=== PATIENT | female | born 1940 | race Caucasian/White ===

== ENCOUNTER → 2023-10-23 11:15 | Outpatient (REF) | payer MEDICARE, OTHER, SELFPAY | LOC: RAD 11:15 | PROVIDERS: ATTENDING PHYSICIAN Internal Medicine Rheumatology; FAMILY PHYSICIAN Internal Medicine | DX: M81.0 Age-related osteoporosis without current pathological fracture (principal) | CPT/HCPCS: 77080 ==

== ENCOUNTER 2023-10-28 19:09 | Inpatient (IN) | payer MEDICARE, OTHER, SELFPAY ==
[2023-10-28 16:33] VITALS: BP 100/63
[2023-10-28 16:35] VITALS: BP 100/63
[2023-10-28 16:50] LABS: % Basophils 0.2 % (0-2); % Eosinophils 0.1 % (0-6); % Immature Granulocytes 0.4 % (0-0.5); % Lymphocytes 12.4 % (20.5-51.1); % Neutrophils 75.9 % (42.2-75.2); Absolute Immature Granulocytes 0.1 10^3/uL (0-0.05); Absolute Lymphocytes 1.8 10^3/uL (1.2-3.4); Absolute Monocytes 1.6 10^3/uL (0.1-0.6); Absolute Neutrophils 10.8 10^3/uL (1.4-6.5); Hematocrit 41.5 % (37.0-47.0); Hemoglobin 14.6 g/dL (12.0-16.0); Mean Corp Hgb Conc. 35.2 g/dL (33.0-37.0); Mean Platelet Volume 11.7 fL (7.4-10.4); Nucleated Red Blood Cells % 0 %; Platelet Count 168 10^3/uL (130-400); Red Blood Cell Count 4.56 10^6/uL (4.20-5.40); Red Cell Dist. Width 15.4 % (11.5-14.5); White Blood Cell Count 14.2 10^3/uL (4.8-10.8)
[2023-10-28 16:53] VITALS: BMI 24.0
[2023-10-28 17:01] LABS: Urine Albumin 2+ (Neg - Trace); Urine Bilirubin Negative (Negative); Urine Character Slightly Cloudy (Clear); Urine Color Yellow; Urine Glucose Negative (Negative); Urine Ketone Trace (Negative); Urine Leukocyte 2+ (Negative); Urine Nitrite Negative (Negative); Urine Occult Blood 4+ (Negative); Urine Urobilinogen Negative (Neg - 1+)
[2023-10-28 17:01] LABS: Lactic Acid 2.6 mmol/L (0.7-2.0)
[2023-10-28 17:09] LABS: Urine Bacteria Many (Negative); Urine Red Blood Cell 60-70 /HPF (0-2); Urine White Cell 30-40 /HPF (0-5)
[2023-10-28 17:09] LABS: ALT (SGPT) 32 U/L (0-35); AST (SGOT) 49 U/L (14-36); Albumin 3.7 g/dl (3.5-5.0); Alkaline Phosphatase 57 U/L (38-126); Blood Urea Nitrogen 53 mg/dl (7-17); Calcium 9.5 mg/dl (8.4-10.2); Chloride 102 mmol/L (98-107); Estimated Creatinine Clearance 17 ml/min; Glucose 121 mg/dl (70-99); Potassium 3.8 mmol/L (3.5-5.1); Sodium 135 mmol/L (135-145); Total Protein 7.4 g/dl (6.3-8.2)
--- NOTE | 2023-10-28 17:13 | ED.GENMED ---
History of Present Illness
General
Chief Complaint: Urinary Symptoms
Source: patient and family
Exam Limitations: altered mental status
Time Seen by Provider: 10/28/23 16:28
Nursing documentation reviewed up to this point in time: agreed with
Travel History
Have you had any contact with someone who has COVID-19?: No
Do you have any symptoms of coronavirus? Fever > 100 degrees, chills, cough, shortness of breath, sore throat, loss of taste or smell, muscle aches, or headache?: No
History of Present Illness
History of Present Illness:
83-year-old female bladder cancer with ileostomy status post surgery [facility] anticoagulated for DVT possibly for A-fib presents for fatigue, decreased responsiveness, apparently did not take her meds today security at her facility
called the daughter they had not heard from her today, EMS was called no falls, patient appears a bit confused here decreased from her baseline, though she does know she is at the hospital knows her daughter, denies chest pain or shortness of breath
Past History
Past History
ED Past Medical History: CAD, Cancer, HTN, Hypercholesterolemia and Other (PE)
ED Past Surgical History: Tonsilectomy and Urological
Social History
Tobacco: Non-smoker
Alcohol: None
Drug: None
Living: alone
Employment: Retired
Review of Systems
Review of Systems
Unable to obtain full review of systems at this time due to: due to acuity
Other source history: family
All Other Systems: Not applicable
Constitutional: Reports fatigue; Denies fever
EENT: Reports no symptoms
Respiratory: Reports no symptoms
Cardiac: Reports no symptoms
ABD/GI: Reports no symptoms
: Reports no symptoms
Musculoskeletal: Reports no symptoms
Neurological: Reports weakness
Hematologic/Lymphatic: Reports no symptoms
Psychiatric: Reports no symptoms
Phy Exam
Physical Exam
Physical Exam:
Physical Exam
General: 83 female mild distress
Neck: Lips are slightly dry
Heart: Tachycardic
Lungs: No wheezing
Abdomen: Nontender ileostomy right lower abdomen
Neuro: alert and oriented. Mild left lower extremity weakness(chronic finding after her surgery per daughter)
Skin: no rash
Psychiatric: Cooperative flat affect
Extremities: no edema.
Course
Orders/Labs/Results
Orders:
Orders
10/28/23 16:39
Electrocardiogram (*1) Urgent
Reason for Study: Other
Other Reason for Exam: Possible Sepsis
Cardiac Monitoring- Treatment ONCE
EKG- Treatment ONCE
IV Insert/Care/Rem.- Treatment PRN
O2 Therapy [RESP] Urgent
Titrate/Wean O2 to maintain O2 sat greater than (%): 93
Special Instructions: TO MAINTAIN CONTINUOUS O2 SATS > OR = 93%
Pulse Ox/cont/shift [RESP] Urgent
Quantity: 1
Special Instructions: CONTINUOUS
10/28/23 16:42
Complete Blood Count/With Diff Urgent
Comprehensive Metabolic Panel Urgent
Lactic Acid Q4H
Comment: ON ICE, CANCEL 2ND ORDER IF FIRST LACTIC ACID LEVEL <2
Blood Culture Q30M
NICHOLE Source: Blood/Venous
Specimen Description:
Comment: FROM 2 SEPARATE SITES
10/28/23 16:48
Urinalysis Reflex To Culture Urgent
Date Specimen was Collected: 10/28/23
Time Specimen was Collected: 16:39
Urine Microscopic Reflex Cult Urgent
Urine Culture Urgent
NICHOLE Source: U
Specimen Description:
Date Specimen was Collected: 10/28/23
Time Specimen was Collected: 16:39
10/28/23 17:12
0.9% Sodium Chloride 1000 ml [Nss] 1,000 ml IV BOLUS
10/28/23 17:15
Lactic Acid Q4H
Comment: CANCEL 2nd LACTIC ACID IF 1st LACTIC ACID IS LESS THAN 2
Blood Culture Q30M
NICHOLE Source: Blood/Venous
Specimen Description:
Comment: FROM 2 SEPARATE SITES
10/28/23 17:26
CT Abd/pel Without Iv Or Oral Urgent
Comment:
Reason For Exam: uti, renal failure, bladder CA
10/28/23 17:27
CefTRIAXone [Rocephin] 1,000 mg IV NOW STA
10/28/23 20:45
Lactic Acid Q4H
Comment: ON ICE, CANCEL 2ND ORDER IF FIRST LACTIC ACID LEVEL <2
10/28/23 21:15
Lactic Acid Q4H
Comment: CANCEL 2nd LACTIC ACID IF 1st LACTIC ACID IS LESS THAN 2
Abnormal Lab Results
10/28/23 10/28/23
16:42 16:48
WBC 14.2 H 10^3/uL
(4.8-10.8)
MCH 32.0 H pg
(27.0-31.0)
RDW 15.4 H %
(11.5-14.5)
MPV 11.7 H fL
(7.4-10.4)
Abs Immat Gran (auto) 0.1 H 10^3/uL
(0-0.05)
Absolute Neuts (auto) 10.8 H 10^3/uL
(1.4-6.5)
Absolute Monos (auto) 1.6 H 10^3/uL
(0.1-0.6)
Neutrophils % 75.9 H %
(42.2-75.2)
Lymphocytes % 12.4 L %
(20.5-51.1)
Monocytes % 11.0 H %
(1.7-9.3)
Carbon Dioxide 17 L mmol/L
(22-30)
BUN 53 H mg/dl
(7-17)
Creatinine 2.2 H mg/dL
(0.6-1.0)
Glucose 121 H mg/dl
(70-99)
Lactic Acid 2.6 H mmol/L
(0.7-2.0)
AST 49 H U/L
(14-36)
Urine Ketones Trace A
(Negative)
Ur Occult Blood Reflex 4+ A
(Negative)
Leukocyte Esterase Rfl 2+ A
(Negative)
Urine RBC 60-70 A /HPF
(0-2)
Urine WBC (Reflex) 30-40 A /HPF
(0-5)
Urine Bacteria (Reflex) Many A
(Negative)
Urine Albumin (Reflex) 2+ A
(Neg - Trace)
10/28/23 16:42
10/28/23 16:42
Vital Signs
Initial and Last Documented VS:
Initial Vital Signs
Temp Pulse Resp BP Pulse Ox
98.3 F 108 18 100/63 97
10/28/23 16:33 10/28/23 16:33 10/28/23 16:33 10/28/23 16:33 10/28/23 16:33
Last Documented Vital Signs
Temp Pulse Resp BP Pulse Ox
98.3 F 106 18 105/56 98
10/28/23 16:33 10/28/23 17:19 10/28/23 17:19 10/28/23 17:19 10/28/23 17:19
MDM/Problems Addressed
Differential Diagnosis Includes:
Infection dehydration electrolyte abnormality
MDM/Problems Addressed:
Weakness
Chronic conditions affecting care: Cancer
Acute Exacerbation and/or Progression of Chronic Illness: Cancer
*Radiology
Radiology exam reviewed: preliminary read by ED provider
*Pulse Oximetry
Patient hypoxic: no
*EKG
Interpreted by ED Provider?: Yes
Interpretation: abnormal
Comparison EKG: changes noted
Heart Rate: 110
Rate: tachycardiac
Rhythm: a-fib
Ischemia: non-specific ST changes
*Operations Manager Station Interpretation
Rate: tachycardiac
Interpretation: abnormal
Heart Rate: 110
Rhythm: a-fib
*Critical Care Note
Total Time (30-74mins, 75-104mins- exclusive of procedures): 15
Update Note
Update Note:
Update labs are noted cultures are pending EKG noted daughter states she has had A-fib previously sounds like she may have did not take her meds as instructed, will start volume resuscitation, likely require admission will hold off on CAT scan of
the head that she has a grossly nonfocal neurologic exam he is oriented no overt signs of head or neck trauma
5:30 PM antibiotics have been ordered, will check CT scan to rule out obstruction
ED Attending Note
-
Portions of this chart may have been created with voice recognition software.� Occasional wrong word or��sound alike� substitutions may have occurred due to the inherent limitations of voice recognition software.
Discharge Plan
Departure
Patient Disposition: Admit
Date of Disposition: 10/28/23
Time of Disposition: 17:28
Admit to: Telemetry
Presentation/result/management discussed w/ accepting MD/DO: Hospitalist
Patient with high blood pressure during this ER visit?: No
Condition: Fair
Covid-19: Not Applicable
Discharge Problem:
DULCE (acute kidney injury), Acute confusion
Prescriptions:
No Action
isosorbide mononitrate 20 MG tablet
30 mg PO DAILY
methotrexate sodium 2.5 MG tablet
7.5 mg PO WEEKLY
levothyroxine 50 MCG tablet
50 mcg PO DAILY
pantoprazole 40 MG tablet,delayed release (DR/EC)
40 mg PO DAILY
metoprolol tartrate 50 MG tablet
50 mg PO BID
folic acid 1 MG tablet
1 mg PO DAILY
pravastatin 20 MG tablet
20 mg PO DAILY
rivaroxaban [Xarelto] 15 MG tablet
15 mg PO QPM
Interventions
Interventions:
*Risk Screen - Suicide Last Done: 10/28/23 16:53
*General Assessment Last Done: 10/28/23 17:03
*Neglect/Abuse Screening Last Done: 10/28/23 16:53
ED- Fall Risk Assessment Last Done: 10/28/23 16:53
*ED COVID-19 Vaccine History Last Done: 10/28/23 16:53
ED-Female Genitourinary Assessment Last Done: 10/28/23 16:53
Discharge Date and Time
Print Language: GUINEAN
[2023-10-28 17:19] VITALS: BP 105/56
[2023-10-28] MEDS: NSS 1000 IV ×2 (17:21→20:18)
[2023-10-28 17:22] LABS: Carbon Dioxide 17 mmol/L (22-30)
[2023-10-28] MEDS: ROCEPHIN 1000 MG IV (17:35)
--- NOTE | 2023-10-28 17:44 | HPS.HSE ---
Addendum entered and electronically signed by Ancelmo Phan MD 10/28/23 18:26:
83-year-old male with a past medical history of paroxysmal atrial fibrillation on Xarelto, bladder cancer with urostomy, hypertension, and hyperlipidemia presented with generalized weakness and decreased responsiveness for 2 days. She was found to
be in acute kidney injury, with a leukocytosis. Urine analysis is positive, but she has a urostomy. She is afebrile. Her heart rate is currently in the 110s.
Treat with IV fluids, continue IV Rocephin for now.
Follow-up on urine cultures. Noted that her urine sample is from her urostomy, but she does have a leukocytosis.
Trend creatinine, no nephrotoxic drugs/NSAIDs.
Her heart rate is slightly high, will give metoprolol tartrate 5 mg IV x 1.
Continue home metoprolol tartrate 50 mg twice a day, Xarelto.
Consult PT/OT, she is from [facility].
I have personally seen and examined the patient, and agree with the plan of care as documented by Carmen Palomo PA-C.
Advance care planning discussed, patient is a DNR.
All other issues as outlined by the advanced care practitioner.
Total time spent to see the patient on the floor, examine the patient, review data and lab results, discuss treatment plan with patient, nursing staff around 75 minutes.
Original Note:
Family Physician
-
Family Physician:
Chief Complaint
-
Confusion
History of Present Illness
This is an 83 year old female with past medical history of atrial fibrillation, hypertension, hyperlipidemia, and bladder cancer with urostomy presents to the emergency department with altered mental status. The daughter was present at bedside and
provided majority of historical information. The patient's daughter states that her mother was repeating herself and exhibiting altered mentation 2 days ago on the phone. The patient's daughter reports her mother's mental status worsened yesterday
and again today, prompting her to present to the emergency department. The patient reports she has a history of urinary tract infections at a frequency of about one a year. Patient denies abdominal pain, fevers, chills, and sweats.
Medical History
Past Medical History
Past Medical History: Reports Other
Additional Past Medical History:
Paroxysmal Atrial Fibrillation
Essential Hypertension
Hyperlipidemia
Hypothyroidism
GERD
DVT
Bladder Cancer
Past Surgical History: Reports Other
Additional Past Surgical History:
Cystectomy with Urostomy
Tonsillectomy
Social History
Tobacco: Non-smoker
Living: Alone (Independent Apartment at [facility])
Family History
Family History: Not pertinent
Allergies / Home Medications
Allergies reflects when Allergies were last updated in [employer].
Home Medications with original date entered in [employer]
Allergy/Medication List:
Allergies
Allergy/AdvReac Type Severity Reaction Status Date / Time
No Known Allergies Allergy Verified 10/28/23 17:05
Home Medications
folic acid 1 mg tablet 1 mg PO DAILY 06/30/20
isosorbide mononitrate 20 mg tablet 30 mg PO DAILY 06/30/20
levothyroxine 50 mcg tablet 50 mcg PO DAILY 06/30/20
metoprolol tartrate 50 mg tablet 50 mg PO BID 06/30/20
pantoprazole 40 mg tablet,delayed release 40 mg PO DAILY 06/30/20
pravastatin 20 mg tablet 20 mg PO DAILY 06/30/20
rivaroxaban 15 mg tablet (Xarelto) 15 mg PO QPM 06/30/20
cholecalciferol (vitamin D3) 25 mcg (1,000 unit) tablet 25 mcg PO DAILY 10/28/23
Review of Systems
-
A 12 point ROS was completed and negative except as noted: Yes
Constitutional: Denies Fever or Chills
Respiratory: Denies Cough or Trouble Breathing
Cardiac: Denies Chest Pain or Palpitations
Physical Exam
Vital Signs
Vital Signs
Temp Pulse Resp BP Pulse Ox
98.3 F 106 18 105/56 98
10/28/23 16:33 10/28/23 17:19 10/28/23 17:19 10/28/23 17:19 10/28/23 17:19
Physical Exam
General: Comfortable and Conversant
HEENT: NormoCephalic and Atraumatic
Respiratory: Clear and Non Labored Respirations
Cardiac: S1/S2, Irregular Rhythm and Tachycardia
GI: Soft and Non Tender
Genito-urinary: Other (Urostomy in RLQ with dark yellow urine in bag)
Skin: Warm and Dry
Neuro: Awake, Alert, Oriented and Nonfocal/grossly intact
Psych: Calm
Laboratory Results
-
10/28/23 16:42
10/28/23 16:42
Laboratory Results
Lactic Acid 2.6 mmol/L (0.7-2.0) H 10/28/23 16:42
Total Bilirubin 1.0 mg/dl (0.2-1.3) 10/28/23 16:42
AST 49 U/L (14-36) H 10/28/23 16:42
ALT 32 U/L (0-35) 10/28/23 16:42
Alkaline Phosphatase 57 U/L (38-126) 10/28/23 16:42
Data Reviewed
-
Lab Data: Labs Reviewed by me
Impression/Plan
-
Severe Sepsis suspect secondary to Urinary Tract Infection
-Continue Rocephin
-Await blood and urine cultures
-Trend Lactic Acid level
DULCE on CKD III
-Continue IVFs
-Await CT scan result
-Recheck Labs in AM
Paroxysmal Atrial Fibrillation, currently with rapid rate in setting of sepsis
-Give Lopressor 5mg IV now
-Continue Metoprolol as prior to admission
-Continue Xarelto
Essential Hypertension
-Continue metoprolol and isosorbide mononitrate
Hyperlipidemia
-Continue pravastatin
Hypothyroidism
-Continue levothyroxine
GERD
-Continue Protonix
Hx Bladder CA s/p Cystectomy with Urostomy
Code Status: DNR
[2023-10-28 18:00] VITALS: BP 119/80
[2023-10-28 18:17] LABS: Troponin I 0.067 ng/ml
[2023-10-28] MEDS: LOPRESSOR 5 MG IV (18:48)
[2023-10-28 19:57] VITALS: BMI 24.0
[2023-10-28 20:14] VITALS: BP 114/75
[2023-10-28] MEDS: XARELTO 15 MG PO (20:14)
[2023-10-28] MEDS: LOPRESSOR 50 MG PO (20:14)
[2023-10-28] MEDS: SODIUM BICARBONATE 1300 MG PO (21:19)
[2023-10-29] VITALS (8 sets, daily range): BP systolic 93–121; BP diastolic 58–69; PULSE 110–137; BMI 24.6
[2023-10-29 00:16] LABS: Lactic Acid 1.7 mmol/L (0.7-2.0)
[2023-10-29 00:41] LABS: Troponin I 0.043 ng/ml
[2023-10-29] MEDS: SYNTHROID 50 MCG PO (05:53)
[2023-10-29 06:02] LABS: % Basophils 0.2 % (0-2); % Immature Granulocytes 0.5 % (0-0.5); % Lymphocytes 12.8 % (20.5-51.1); % Monocytes 10.6 % (1.7-9.3); % Neutrophils 74.9 % (42.2-75.2); Absolute Eosinophils 0.1 10^3/uL (0-0.7); Absolute Immature Granulocytes 0.1 10^3/uL (0-0.05); Absolute Lymphocytes 1.6 10^3/uL (1.2-3.4); Absolute Monocytes 1.3 10^3/uL (0.1-0.6); Absolute Neutrophils 9.3 10^3/uL (1.4-6.5); Hematocrit 38.7 % (37.0-47.0); Hemoglobin 13.9 g/dL (12.0-16.0); Mean Corp Hgb Conc. 35.9 g/dL (33.0-37.0); Mean Corpuscular Volume 89.2 fL (81.0-99.0); Mean Platelet Volume 11.7 fL (7.4-10.4); Nucleated Red Blood Cells % 0 %; Platelet Count 184 10^3/uL (130-400); Red Blood Cell Count 4.34 10^6/uL (4.20-5.40); Red Cell Dist. Width 14.9 % (11.5-14.5); White Blood Cell Count 12.4 10^3/uL (4.8-10.8)
[2023-10-29 06:26] LABS: Blood Urea Nitrogen 53 mg/dl (7-17); Calcium 8.6 mg/dl (8.4-10.2); Carbon Dioxide 15 mmol/L (22-30); Chloride 108 mmol/L (98-107); Estimated Creatinine Clearance 20 ml/min; Glucose 95 mg/dl (70-99); Magnesium 1.9 mg/dl (1.6-2.3); Potassium 3.4 mmol/L (3.5-5.1); Sodium 135 mmol/L (135-145); eGFR 25.88
--- NOTE | 2023-10-29 08:13 | W.PN.HOSP.TC ---
Today's Communication/Plan
-
see bold
Assessment / Plan
Assessment / Plan
HPI: 83-year-old male with a past medical history of paroxysmal atrial fibrillation on Xarelto, bladder cancer with urostomy, hypertension, and hyperlipidemia presented with generalized weakness and decreased responsiveness for 2 days. She was
found to be in acute kidney injury, with a leukocytosis. Urine analysis is positive, but she has a urostomy. She is afebrile. Her heart rate is currently in the 110s.
#Sepsis next #gram-negative mi bacteremia
#Acute urinary tract infection
Increase Rocephin to 2 g IV every 24 hours, follow-up on blood cultures, follow-up on urine cultures
#Rapid atrial fibrillation
Increase metoprolol to tartrate to 50 mg every 6 hours, continue Xarelto
#Acute kidney injury superimposed on stage IIIb chronic kidney disease
Creatinine 1.9 today, down from 2.2. Her baseline is about 1.6
Continue gentle IV fluids, no nephrotoxic drugs/NSAIDs
#Weakness
From [place] independent living
PT recommend short-term rehab
#Hyperlipidemia
Continue statin
#Hypothyroidism
Continue levothyroxine
#Gastroesophageal reflux disease
Continue Protonix
#Bladder CA s/p Cystectomy with Urostomy
DVT prophylaxis�Xarelto
DNR
Updated daughter on phone 10/28
Total time spent to see the patient on the floor, examine the patient, review data and lab results, discuss treatment plan with patient, nursing staff around 50 minutes.
Physical Exam
General: No acute distress
HEENT: Normocephalic, Atraumatic, EOMI, MMM
Respiratory: Clear to Auscultation bilaterally
Cardiac: Normal S1/S2, irregularly irregular, tachycardic rate
GI: Soft, Nontender, Nondistended, Normal Bowel Sounds
Urostomy noted
Extremities: No Clubbing, Cyanosis, or Edema
Neuro: Nonfocal/Grossly Intact
Psych: Calm, Cooperative
Anticipated Discharge: > 48 hours
Subjective/Interval History
-
Date of Service: October 29, 2023
Patient continues to feel weak. No chest pain, shortness of breath, palpitations. No fever, no vomiting.
Objective Data
-
Labs:
Laboratory Results
10/29/23
05:53
WBC 12.4 H
Hgb 13.9
Hct 38.7
Plt Count 184
Sodium 135
Potassium 3.4 L
Chloride 108 H
Carbon Dioxide 15 L
BUN 53 H
Creatinine 1.9 H
Glucose 95
Calcium 8.6
Vital Signs:
Vital Signs
Temp Pulse Resp BP Pulse Ox
98.1 F 102 21 113/68 94
10/29/23 08:03 10/29/23 08:03 10/29/23 08:03 10/29/23 08:03 10/29/23 08:11
I&O
10/28/23 10/29/23 10/30/23
06:59 06:59 06:59
Intake Total 1220 / 1220
Output Total 600 / 600
Balance 620 / 620
[2023-10-29] MEDS: ISMO 30 MG PO (08:25)
[2023-10-29] MEDS: FOLVITE 1 MG PO (08:25)
[2023-10-29] MEDS: PROTONIX 40 MG PO (08:26)
[2023-10-29] MEDS: PRAVACHOL 20 MG PO (08:26)
[2023-10-29] MEDS: LOPRESSOR 50 MG PO ×4 (08:26→23:36)
[2023-10-29] MEDS: SODIUM BICARBONATE 1300 MG PO ×3 (08:27→21:11)
[2023-10-29] MEDS: VITAMIN D3 (cholecalciferol) 25 MCG PO (08:27)
[2023-10-29] MEDS: KCL 20 MEQ PO (08:32)
[2023-10-29] MEDS: NSS 1000 IV (10:07)
[2023-10-29] MEDS: SODIUM BICARBONATE 1075 MEQ IV (12:06)
[2023-10-29] MEDS: ROCEPHIN 2000 MG IV (14:19)
[2023-10-29] MEDS: STERILE WATER FOR INJECTION 20 ML IV (14:20)
--- NOTE | 2023-10-29 14:31 | CM ---
Patient lives at [facility]. Patient is agreeable to placement at [place]. Patient requested that CM speak with her daughter to update on discharge plan. Daughter is agreeable to [facility] as first choice and [facility] as second choice.
CM sent referral via [facility].
[2023-10-29] MEDS: XARELTO 15 MG PO (17:10)
[2023-10-30] MEDS: SODIUM BICARBONATE 1075 MEQ IV (02:19)
[2023-10-30] MEDS: SYNTHROID 50 MCG PO (05:24)
[2023-10-30] MEDS: LOPRESSOR 50 MG PO ×4 (05:27→23:28)
[2023-10-30 07:30] VITALS: BP 102/69
[2023-10-30] MEDS: PRAVACHOL 20 MG PO (07:49)
[2023-10-30] MEDS: SODIUM BICARBONATE 1300 MG PO (07:49)
[2023-10-30] MEDS: VITAMIN D3 (cholecalciferol) 25 MCG PO (07:49)
[2023-10-30] MEDS: FOLVITE 1 MG PO (07:49)
[2023-10-30] MEDS: PROTONIX 40 MG PO (07:49)
--- NOTE | 2023-10-30 08:36 | W.PN.HOSP.TC ---
Addendum entered and electronically signed by Ancelmo Phan MD 10/30/23 15:13:
#Hypokalemia
Repleted and resolved
Original Note:
Today's Communication/Plan
-
see bold
Assessment / Plan
Assessment / Plan
HPI: 83-year-old male with a past medical history of paroxysmal atrial fibrillation on Xarelto, bladder cancer with urostomy, hypertension, and hyperlipidemia presented with generalized weakness and decreased responsiveness for 2 days. She was
found to be in acute kidney injury, with a leukocytosis. Urine analysis is positive, but she has a urostomy. She is afebrile. Her heart rate is currently in the 110s.
#Sepsis next
#Gram-negative mi bacteremia
#Acute urinary tract infection
Continue Rocephin to 2 g IV every 24 hours, follow-up on blood cultures, urine culture with mixed bernadine since it is from her urostomy
#Rapid atrial fibrillation
Increased metoprolol to tartrate to 50 mg every 6 hours, continue Xarelto
#Acute kidney injury superimposed on stage IIIb chronic kidney disease
Creatinine 1.6 today, down from 2.2. Her baseline is about 1.6
Decrease IV fluids, no nephrotoxic drugs/NSAIDs
#Weakness
From [place] independent living
PT recommend short-term rehab
#Hyperlipidemia
Continue statin
#Hypothyroidism
Continue levothyroxine
#Gastroesophageal reflux disease
Continue Protonix
#Bladder CA s/p Cystectomy with Urostomy
DVT prophylaxis�Xarelto
DNR
Updated daughter on phone 10/29
Total time spent to see the patient on the floor, examine the patient, review data and lab results, discuss treatment plan with patient, nursing staff around 51 minutes.
Physical Exam
General: No acute distress
HEENT: Normocephalic, Atraumatic, EOMI, MMM
Respiratory: Clear to Auscultation bilaterally
Cardiac: Normal S1/S2, irregularly irregular, tachycardic rate
GI: Soft, Nontender, Nondistended, Normal Bowel Sounds
Urostomy noted
Extremities: No Clubbing, Cyanosis, or Edema
Neuro: Nonfocal/Grossly Intact
Psych: Calm, Cooperative
Anticipated Discharge: 24 - 48 hours
Subjective/Interval History
-
Date of Service: October 30, 2023
Still weak. No fever, no vomiting.
Objective Data
-
Vital Signs:
Vital Signs
Temp Pulse Resp BP Pulse Ox
98 F 103 16 102/69 96
10/30/23 07:30 10/30/23 07:30 10/30/23 07:30 10/30/23 07:30 10/30/23 07:30
I&O
10/29/23 10/30/23 10/31/23
06:59 06:59 06:59
Intake Total 1220 / 1220 400 / 400
Output Total 600 / 600 1400 / 1400
Balance 620 / 620 -1000 / -1000
[2023-10-30 09:19] LABS: Hematocrit 36.3 % (37.0-47.0); Hemoglobin 12.9 g/dL (12.0-16.0); Mean Corp Hgb Conc. 35.5 g/dL (33.0-37.0); Mean Corpuscular Hgb 31.9 pg (27.0-31.0); Mean Corpuscular Volume 89.6 fL (81.0-99.0); Mean Platelet Volume 11.8 fL (7.4-10.4); Platelet Count 191 10^3/uL (130-400); Red Blood Cell Count 4.05 10^6/uL (4.20-5.40); Red Cell Dist. Width 14.6 % (11.5-14.5); White Blood Cell Count 9.9 10^3/uL (4.8-10.8)
--- NOTE | 2023-10-30 09:50 | PN.CDI ---
CDI
- -
CDI:
Physician Documentation Request
Admit Date: 10/28/23 19:09
Dear Doctor Do,
Patient admitted for sepsis.
6/ Potassium level: 3.4
6/6 Potassium chloride 20 meq PO administered
Based on the above, could you clarify in the progress notes, the appropriate diagnosis, if significant, that supports the above abnormalities and additional evaluation, monitoring and/or treatment rendered:
Hypokalemia
Abnormal lab value insignificant
Other
Use of terms such as suspected, likely, concern for, or probable (associated with a specific diagnosis that is being evaluated, monitored, or treated as if it exists) are acceptable and can be coded in the inpatient setting, when documented at the
time of discharge.
Thank you,
Luz Al RN, BSN
CDI Specialist
Available via [employer] text
Please use your independent medical judgment in providing your response.
[2023-10-30 09:51] LABS: Blood Urea Nitrogen 40 mg/dl (7-17); Calcium 8.1 mg/dl (8.4-10.2); Carbon Dioxide 24 mmol/L (22-30); Chloride 105 mmol/L (98-107); Estimated Creatinine Clearance 24 ml/min; Glucose 101 mg/dl (70-99); Potassium 3.5 mmol/L (3.5-5.1); Sodium 135 mmol/L (135-145)
[2023-10-30 11:13] VITALS: BP 113/68
[2023-10-30] MEDS: STERILE WATER FOR INJECTION 20 ML IV (14:40)
[2023-10-30] MEDS: ROCEPHIN 2000 MG IV (14:41)
[2023-10-30] MEDS: KCL 20 MEQ PO (15:45)
[2023-10-30] MEDS: SODIUM BICARBONATE 650 MG PO ×2 (15:45→21:00)
[2023-10-30] MEDS: NSS 1000 IV (15:46)
[2023-10-30 15:53] VITALS: BP 118/65
[2023-10-30] MEDS: XARELTO 15 MG PO (17:42)
[2023-10-30 19:00] VITALS: BP 115/70
[2023-10-30 23:00] VITALS: BP 112/60
[2023-10-31] VITALS (7 sets, daily range): BP systolic 107–126; BP diastolic 52–80
[2023-10-31] MEDS: LOPRESSOR 50 MG PO ×4 (05:34→23:55)
[2023-10-31] MEDS: SYNTHROID 50 MCG PO (05:34)
[2023-10-31 07:21] LABS: Hemoglobin 12.1 g/dL (12.0-16.0); Mean Corp Hgb Conc. 34.6 g/dL (33.0-37.0); Mean Corpuscular Hgb 31.8 pg (27.0-31.0); Mean Corpuscular Volume 92.1 fL (81.0-99.0); Mean Platelet Volume 12.2 fL (7.4-10.4); Platelet Count 199 10^3/uL (130-400); Red Cell Dist. Width 14.6 % (11.5-14.5); White Blood Cell Count 9.5 10^3/uL (4.8-10.8)
[2023-10-31] MEDS: FOLVITE 1 MG PO (07:46)
[2023-10-31] MEDS: PROTONIX 40 MG PO (07:46)
[2023-10-31] MEDS: PRAVACHOL 20 MG PO (07:46)
[2023-10-31] MEDS: VITAMIN D3 (cholecalciferol) 25 MCG PO (07:46)
[2023-10-31] MEDS: SODIUM BICARBONATE 650 MG PO ×3 (07:47→21:14)
--- NOTE | 2023-10-31 08:01 | W.PN.HOSP.TC ---
Today's Communication/Plan
-
see bold
Assessment / Plan
Assessment / Plan
HPI: 83-year-old male with a past medical history of paroxysmal atrial fibrillation on Xarelto, bladder cancer with urostomy, hypertension, and hyperlipidemia presented with generalized weakness and decreased responsiveness for 2 days. She was
found to be in acute kidney injury, with a leukocytosis. Urine analysis is positive, but she has a urostomy. She is afebrile. Her heart rate is currently in the 110s.
#Sepsis next
#Gram-negative mi bacteremia
#Acute urinary tract infection
Continue Rocephin to 2 g IV every 24 hours, blood cultures growing Klebsiella, sensitive to Rocephin. Urine culture with mixed bernadine since it is from her urostomy
Continue Rocephin while in the hospital, transition to Keflex upon discharge to complete a 10-day course
Plan for discharge to short-term rehab Thursday
#Rapid atrial fibrillation
Increased metoprolol to tartrate to 50 mg every 6 hours, continue Xarelto
#Acute kidney injury superimposed on stage IIIb chronic kidney disease
Creatinine 1.5 today, down from 2.2. Her baseline is about 1.6
Cap IV fluids, no nephrotoxic drugs/NSAIDs
#Weakness
From [place] independent [facility]
PT recommend short-term rehab
#Hypokalemia
Repleted and resolved
#Hyperlipidemia
Continue statin
#Hypothyroidism
Continue levothyroxine
#Gastroesophageal reflux disease
Continue Protonix
#Bladder CA s/p Cystectomy with Urostomy
DVT prophylaxis�Xarelto
DNR
Updated daughter on phone 10/29
Total time spent to see the patient on the floor, examine the patient, review data and lab results, discuss treatment plan with patient, nursing staff around 35 minutes.
Physical Exam
General: No acute distress
HEENT: Normocephalic, Atraumatic, EOMI, MMM
Respiratory: Clear to Auscultation bilaterally
Cardiac: Normal S1/S2, irregularly irregular, tachycardic rate
GI: Soft, Nontender, Nondistended, Normal Bowel Sounds
Urostomy noted
Extremities: No Clubbing, Cyanosis, or Edema
Neuro: Nonfocal/Grossly Intact
Psych: Calm, Cooperative
Anticipated Discharge: 24 - 48 hours
Subjective/Interval History
-
Date of Service: October 30, 2023
No fever, no vomiting. No chest pain, no shortness of breath. Weakness improved.
Objective Data
-
Labs:
Laboratory Results
10/30/23
08:56
WBC 9.9
Hgb 12.9
Hct 36.3 L
Plt Count 191
Sodium 135
Potassium 3.5
Chloride 105
Carbon Dioxide 24
BUN 40 H
Creatinine 1.6 H
Glucose 101 H
Calcium 8.1 L
Vital Signs:
Vital Signs
Temp Pulse Resp BP Pulse Ox
98 F 125 16 108/64 96
10/30/23 11:13 10/30/23 12:51 10/30/23 11:13 10/30/23 12:51 10/30/23 11:13
I&O
10/29/23 10/30/23 10/31/23
06:59 06:59 06:59
Intake Total 1220 / 1220 400 / 400
Output Total 600 / 600 1400 / 1400
Balance 620 / 620 -1000 / -1000
[2023-10-31 08:05] LABS: Blood Urea Nitrogen 33 mg/dl (7-17); Calcium 8.5 mg/dl (8.4-10.2); Carbon Dioxide 22 mmol/L (22-30); Chloride 106 mmol/L (98-107); Estimated Creatinine Clearance 26 ml/min; Glucose 95 mg/dl (70-99); Magnesium 1.8 mg/dl (1.6-2.3); Potassium 3.8 mmol/L (3.5-5.1); Sodium 136 mmol/L (135-145); eGFR 34.36
[2023-10-31] MEDS: NSS 1000 IV (11:51)
[2023-10-31] MEDS: STERILE WATER FOR INJECTION 20 ML IV (13:04)
[2023-10-31] MEDS: ROCEPHIN 2000 MG IV (13:04)
--- NOTE | 2023-10-31 14:52 | CM ---
CM reviewed chart. Per team anticipate pt may be stable for dc Thursday. Referrals sent to [facility] and [facility] via [facility], both marked for consideration pending bed availability that day.
CM to follow up on Thursday with [facility] and [facility] on bed.
[2023-10-31] MEDS: XARELTO 15 MG PO (17:29)
[2023-11-01] VITALS (7 sets, daily range): BP systolic 113–148; BP diastolic 55–76
[2023-11-01] MEDS: LOPRESSOR 50 MG PO ×3 (05:59→21:25)
[2023-11-01] MEDS: SYNTHROID 50 MCG PO (05:59)
[2023-11-01 07:32] LABS: Hemoglobin 11.2 g/dL (12.0-16.0); Mean Corpuscular Hgb 31.9 pg (27.0-31.0); Mean Corpuscular Volume 91.2 fL (81.0-99.0); Mean Platelet Volume 11.8 fL (7.4-10.4); Platelet Count 232 10^3/uL (130-400); Red Blood Cell Count 3.51 10^6/uL (4.20-5.40); White Blood Cell Count 8.1 10^3/uL (4.8-10.8)
[2023-11-01 07:52] LABS: Blood Urea Nitrogen 32 mg/dl (7-17); Calcium 8.5 mg/dl (8.4-10.2); Carbon Dioxide 21 mmol/L (22-30); Chloride 107 mmol/L (98-107); Estimated Creatinine Clearance 24 ml/min; Glucose 102 mg/dl (70-99); Potassium 4.1 mmol/L (3.5-5.1); Sodium 136 mmol/L (135-145)
[2023-11-01] MEDS: VITAMIN D3 (cholecalciferol) 25 MCG PO (08:05)
[2023-11-01] MEDS: PROTONIX 40 MG PO (08:05)
[2023-11-01] MEDS: FOLVITE 1 MG PO (08:06)
[2023-11-01] MEDS: PRAVACHOL 20 MG PO (08:06)
[2023-11-01] MEDS: SODIUM BICARBONATE 650 MG PO (08:06)
--- NOTE | 2023-11-01 08:35 | W.PN.HOSP.TC ---
Today's Communication/Plan
-
Discharge to short-term rehab tomorrow
Assessment / Plan
Assessment / Plan
HPI: 83-year-old male with a past medical history of paroxysmal atrial fibrillation on Xarelto, bladder cancer with urostomy, hypertension, and hyperlipidemia presented with generalized weakness and decreased responsiveness for 2 days. She was
found to be in acute kidney injury, with a leukocytosis. Urine analysis is positive, but she has a urostomy. She is afebrile. Her heart rate is currently in the 110s.
#Sepsis next
#Gram-negative mi bacteremia
#Acute urinary tract infection
Continue Rocephin to 2 g IV every 24 hours, blood cultures growing Klebsiella, sensitive to Rocephin. Urine culture with mixed bernadine since it is from her urostomy
Continue Rocephin while in the hospital, transition to Keflex upon discharge to complete a 10-day course
Plan for discharge to short-term rehab Thursday
#Rapid atrial fibrillation
Rate much improved, decrease metoprolol to 50 mg 3 times daily, continue Xarelto
#Acute kidney injury superimposed on stage IIIb chronic kidney disease
Creatinine 1.5 today, down from 2.2. Her baseline is about 1.6
S/p IV fluids, no nephrotoxic drugs/NSAIDs
#Weakness
From [facility]
PT recommend short-term rehab
#Hypokalemia
Repleted and resolved
#Hyperlipidemia
Continue statin
#Hypothyroidism
Continue levothyroxine
#Gastroesophageal reflux disease
Continue Protonix
#Bladder CA s/p Cystectomy with Urostomy
DVT prophylaxis�Xarelto
DNR
Updated daughter on phone 10/31
Total time spent to see the patient on the floor, examine the patient, review data and lab results, discuss treatment plan with patient, nursing staff around 35 minutes.
Physical Exam
General: No acute distress
HEENT: Normocephalic, Atraumatic, EOMI, MMM
Respiratory: Clear to Auscultation bilaterally
Cardiac: Normal S1/S2, RRR
GI: Soft, Nontender, Nondistended, Normal Bowel Sounds
Urostomy noted
Extremities: No Clubbing, Cyanosis, or Edema
Neuro: Nonfocal/Grossly Intact
Psych: Calm, Cooperative
Anticipated Discharge: Within 24 hours
Subjective/Interval History
-
Date of Service: November 01, 2023
Patient reports feeling better. Weakness improved. No fever. No nausea, no vomiting.
Objective Data
-
Labs:
Laboratory Results
11/01/23
06:52
WBC 8.1
Hgb 11.2 L
Hct 32.0 L
Plt Count 232
Sodium 136
Potassium 4.1
Chloride 107
Carbon Dioxide 21 L
BUN 32 H
Creatinine 1.6 H
Glucose 102 H
Calcium 8.5
Vital Signs:
Vital Signs
Temp Pulse Resp BP Pulse Ox
98 F 72 20 134/74 97
11/01/23 07:00 11/01/23 07:00 11/01/23 07:00 11/01/23 07:00 11/01/23 07:00
I&O
10/31/23 11/01/23 11/02/23
06:59 06:59 06:59
Intake Total 1940 / 0 1460 / 1460
Output Total 2350 / 2350 1175 / 1175
Balance -410 / -410 285 / 285
[2023-11-01] MEDS: IMDUR (EXTENDED RELEASE) 30 MG PO (12:16)
[2023-11-01] MEDS: STERILE WATER FOR INJECTION 20 ML IV (14:13)
[2023-11-01] MEDS: ROCEPHIN 2000 MG IV (14:13)
[2023-11-01] MEDS: SODIUM BICARBONATE 1300 MG PO ×2 (15:54→21:21)
[2023-11-01] MEDS: XARELTO 15 MG PO (17:10)
[2023-11-02 03:00] VITALS: BP 132/77
[2023-11-02] MEDS: SYNTHROID 50 MCG PO (05:10)
[2023-11-02 06:00] VITALS: BMI 25.1
[2023-11-02 07:00] VITALS: BP 140/72
[2023-11-02 07:55] LABS: Hemoglobin 11.2 g/dL (12.0-16.0); Mean Corpuscular Hgb 31.8 pg (27.0-31.0); Mean Corpuscular Volume 90.9 fL (81.0-99.0); Mean Platelet Volume 11.6 fL (7.4-10.4); Platelet Count 287 10^3/uL (130-400); Red Blood Cell Count 3.52 10^6/uL (4.20-5.40); Red Cell Dist. Width 14.8 % (11.5-14.5); White Blood Cell Count 8.2 10^3/uL (4.8-10.8)
[2023-11-02] MEDS: PROTONIX 40 MG PO (07:57)
[2023-11-02] MEDS: IMDUR (EXTENDED RELEASE) 30 MG PO (07:57)
[2023-11-02] MEDS: LOPRESSOR 50 MG PO ×2 (07:57→15:13)
[2023-11-02] MEDS: PRAVACHOL 20 MG PO (07:57)
[2023-11-02] MEDS: FOLVITE 1 MG PO (07:58)
[2023-11-02] MEDS: VITAMIN D3 (cholecalciferol) 25 MCG PO (07:58)
[2023-11-02] MEDS: SODIUM BICARBONATE 1300 MG PO ×2 (07:58→15:14)
[2023-11-02 08:24] LABS: Blood Urea Nitrogen 25 mg/dl (7-17); Calcium 8.6 mg/dl (8.4-10.2); Carbon Dioxide 22 mmol/L (22-30); Chloride 109 mmol/L (98-107); Estimated Creatinine Clearance 23 ml/min; Glucose 103 mg/dl (70-99); Potassium 3.7 mmol/L (3.5-5.1); Sodium 138 mmol/L (135-145); eGFR 29.57
--- NOTE | 2023-11-02 09:00 | W.PN.HOSP.TC ---
Today's Communication/Plan
-
Discharge today
Assessment / Plan
Assessment / Plan
HPI: 83-year-old male with a past medical history of paroxysmal atrial fibrillation on Xarelto, bladder cancer with urostomy, hypertension, and hyperlipidemia presented with generalized weakness and decreased responsiveness for 2 days. She was
found to be in acute kidney injury, with a leukocytosis. Urine analysis is positive, but she has a urostomy. She is afebrile. Her heart rate is currently in the 110s.
#Sepsis next
#Gram-negative mi bacteremia
#Acute urinary tract infection
Continue Rocephin to 2 g IV every 24 hours, blood cultures growing Klebsiella, sensitive to Rocephin. Urine culture with mixed bernadine since it is from her urostomy
Continue Rocephin while in the hospital, transition to Keflex upon discharge to complete a 10-day course
Medically stable for discharge to short-term rehab today
#Rapid atrial fibrillation
Rate controlled, decrease metoprolol back to her home dose of 50 mg twice a day, continue Xarelto
#Acute kidney injury superimposed on stage IIIb chronic kidney disease
Creatinine 1.7 today, down from 2.2. Her baseline is about 1.6
S/p IV fluids, no nephrotoxic drugs/NSAIDs
#Weakness
From [facility]
PT recommend short-term rehab
#Hypokalemia
Repleted and resolved
#Hyperlipidemia
Continue statin
#Hypothyroidism
Continue levothyroxine
#Gastroesophageal reflux disease
Continue Protonix
#Bladder CA s/p Cystectomy with Urostomy
DVT prophylaxis�Xarelto
DNR
Updated daughter on phone 10/31
Physical Exam
General: No acute distress
HEENT: Normocephalic, Atraumatic, EOMI, MMM
Respiratory: Clear to Auscultation bilaterally
Cardiac: Normal S1/S2, RRR
GI: Soft, Nontender, Nondistended, Normal Bowel Sounds
Urostomy noted
Extremities: No Clubbing, Cyanosis, or Edema
Neuro: Nonfocal/Grossly Intact
Psych: Calm, Cooperative
Anticipated Discharge: Today
Subjective/Interval History
-
Date of Service: November 02, 2023
Patient reports feeling well. Weakness improved. No chest pain, shortness of breath, palpitations. No fever, no vomiting.
Objective Data
-
Labs:
Laboratory Results
11/02/23
07:05
WBC 8.2
Hgb 11.2 L
Hct 32.0 L
Plt Count 287 D
Sodium 138
Potassium 3.7
Chloride 109 H
Carbon Dioxide 22
BUN 25 H
Creatinine 1.7 H
Glucose 103 H
Calcium 8.6
Vital Signs:
Vital Signs
Temp Pulse Resp BP Pulse Ox
98.6 F 72 17 140/72 96
11/02/23 07:00 11/02/23 07:00 11/02/23 07:00 11/02/23 07:00 11/02/23 07:00
I&O
11/01/23 11/02/23 11/03/23
06:59 06:59 06:59
Intake Total 1460 / 1460 720 / 720
Output Total 1175 / 1175 1925 / 1925
Balance 285 / 285 -1205 / -1205
--- NOTE | 2023-11-02 10:09 | CM ---
Addendum entered by MICHELLE Condon 11/02/23 12:23:
Medical necessity and transfer sheet completed and provided to [facility] community services manager.
Updated patient who is agreeable to [facility] and then return to her apartment at [place] when rehab is over.
Addendum entered by MICHELLE Condon 11/02/23 11:25:
Received return call from [facility] who confirmed that she can accept patient today.
#For report [phone] and #For fax [phone]
Will complete medical necessity and transfer sheet for community services manager.
Original Note:
Reviewed chart, patient may be medically cleared for discharge today. Placed a call to [facility] and spoke with Krysten in admissions who stated that she will review referral again and then render determination.
Plan: Case management will continue to follow and assist with discharge planning. Tentative [facility] when medically cleared.
[2023-11-02 11:00] VITALS: BP 112/65
--- NOTE | 2023-11-02 11:55 | W.DCSUMMARY ---
Discharge Summary
Discharge Data
Date of Admission: 10/28/23
Date of Discharge: 11/02/23
-
Pending Results: No
Hospital Course
Discharge diagnosis:
Sepsis
Klebsiella bacteremia
Acute urinary tract infection
Rapid atrial fibrillation
Acute kidney injury superimposed on stage IIIb chronic kidney disease
Weakness
Hypokalemia
Hyperlipidemia
Hypothyroidism
Gastroesophageal reflux disease
Bladder cancer status post cystectomy with urostomy
Hospital course:
83-year-old female with a past medical history of paroxysmal atrial fibrillation on Xarelto, bladder cancer with urostomy, hypertension, and hyperlipidemia was admitted for sepsis secondary to acute urinary tract infection. She was treated with
Rocephin. Blood cultures grew out Klebsiella. Her Rocephin was increased to 2 g IV every 24 hours.
Patient was also found to have acute kidney injury superimposed on stage IIIb chronic kidney disease, due to dehydration. She received IV fluids, and her creatinine returned to baseline at 1.7.
Patient's hospital course was complicated by rapid atrial fibrillation due to sepsis. She is continued on her Xarelto for anticoagulation. She is usually on metoprolol tartrate 50 mg twice a day for rate control. This was increased to 50 mg every
6 hours. She did receive 1 dose of metoprolol tartrate 5 mg IV as well. After several days, her rate became controlled. She was transitioned back to metoprolol succinate 50 mg twice a day, her home dose.
Patient's weakness improved. She was seen by PT, who recommended short-term rehab. She is medically stable for discharge to short-term rehab. The Klebsiella in her blood is sensitive to Ancef. She will be discharged on Keflex 500 mg 3 times a
day to complete a 10-day course. She needs to follow-up with her primary care doctor in 1 week.
Disposition: Short-term rehab
Discharge planning: Required 38 minutes
Discharge Plan
-
Patient Disposition: Prison/SNF
Discharge Diagnosis/Procedures: Sepsis, bacteremia, acute urinary tract infection, rapid atrial fibrillation, weakness, acute kidney injury superimposed on chronic kidney disease, non-anion gap metabolic acidosis
Condition: Good
Diet: Low Fat and Low Cholesterol
Activity: As tolerated
Activity Restrictions/Additional Instructions:
Please take cephalexin 500 mg 3 times a day for 6 more days.
Follow-up with your primary care doctor in 1 week.
Referrals:
Fidencio Swift MD [Family Provider] - in one week
Prescriptions:
New
sodium bicarbonate 650 mg Tablet
1,300 mg PO TID Qty: 0 0RF
cephalexin 500 mg tablet
500 mg PO TID 6 Days Qty: 18 0RF
acetaminophen 325 mg Tablet
650 mg PO Q4HPRN PRN (Reason: mild pain/SAN/temp> 100.4F) Qty: 0 0RF
Continued
isosorbide mononitrate 20 MG tablet
30 mg PO DAILY
levothyroxine 50 MCG tablet
50 mcg PO DAILY
pantoprazole 40 MG tablet,delayed release (DR/EC)
40 mg PO DAILY
metoprolol tartrate 50 MG tablet
50 mg PO BID
folic acid 1 MG tablet
1 mg PO DAILY
pravastatin 20 MG tablet
20 mg PO DAILY
Xarelto 15 MG tablet
15 mg PO QPM
cholecalciferol (vitamin D3) 25 mcg (1,000 unit) Tablet
25 mcg PO DAILY
Discharge Orders:
Discharge Patient (As Directed); Ordered 11/02/23
Ordered By: Ancelmo Phan
Discharge Date and Time
Discharge Date/Time: 11/02/23 17:46
Print Language: KAZAKH
[2023-11-02] MEDS: STERILE WATER FOR INJECTION 20 ML IV (12:09)
[2023-11-02] MEDS: ROCEPHIN 2000 MG IV (12:09)
[2023-11-02 14:00] VITALS: BP 125/67
[2023-11-02 15:10] VITALS: BP 155/74
== END 2023-11-02 17:46 | DRG 872 ==
LOC: 3 WEST ACU 19:09
PROVIDERS: Emergency Medicine; Physician Assistant Medical; ADMITTING PHYSICIAN Family Medicine; EMERGENCY PHYSICIAN Emergency Medicine; FAMILY PHYSICIAN Internal Medicine
DX: A41.59 Other Gram-negative sepsis (principal); N17.9 Acute kidney failure, unspecified; E87.20 Acidosis, unspecified; N39.0 Urinary tract infection, site not specified; I12.9 Hypertensive chronic kidney disease with stage 1 through stage 4 chronic kidney disease, or unspecified chronic kidney disease; E03.9 Hypothyroidism, unspecified; N18.32 Chronic kidney disease, stage 3b; Z90.6 Acquired absence of other parts of urinary tract; E86.0 Dehydration; Z66 Do not resuscitate; R65.20 Severe sepsis without septic shock; B96.1 Klebsiella pneumoniae [K. pneumoniae] as the cause of diseases classified elsewhere; I48.0 Paroxysmal atrial fibrillation; E78.5 Hyperlipidemia, unspecified; K21.9 Gastro-esophageal reflux disease without esophagitis; I25.10 Atherosclerotic heart disease of native coronary artery without angina pectoris; E87.6 Hypokalemia; Z79.01 Long term (current) use of anticoagulants; Z79.890 Hormone replacement therapy; Z79.899 Other long term (current) drug therapy; Z87.440 Personal history of urinary (tract) infections; Z85.51 Personal history of malignant neoplasm of bladder; Z93.6 Other artificial openings of urinary tract status; Z93.2 Ileostomy status
CPT/HCPCS: 74176; 80048; 80053; 81003; 81015; 83605; 83735; 84484; 85025; 85027; 87040; 87070; 87086; 87149; 87186; 87205; 93005; 96361; 96374; 99285; J7030

== ENCOUNTER → 2023-11-04 14:26 | Outpatient (REF) | payer OTHER, MEDICARE, SELFPAY ==
[2023-11-04 15:18] LABS: % Basophils 0.7 % (0-2); % Eosinophils 3.9 % (0-6); % Lymphocytes 30.6 % (20.5-51.1); % Monocytes 12.7 % (1.7-9.3); % Neutrophils 51.1 % (42.2-75.2); Absolute Basophils 0.1 10^3/uL (0-0.2); Absolute Eosinophils 0.3 10^3/uL (0-0.7); Absolute Immature Granulocytes 0.1 10^3/uL (0-0.05); Absolute Lymphocytes 2.5 10^3/uL (1.2-3.4); Absolute Monocytes 1.1 10^3/uL (0.1-0.6); Absolute Neutrophils 4.2 10^3/uL (1.4-6.5); Hematocrit 34.5 % (37.0-47.0); Hemoglobin 11.3 g/dL (12.0-16.0); Mean Corp Hgb Conc. 32.8 g/dL (33.0-37.0); Mean Corpuscular Hgb 31.7 pg (27.0-31.0); Mean Corpuscular Volume 96.6 fL (81.0-99.0); Mean Platelet Volume 11.7 fL (7.4-10.4); Nucleated Red Blood Cells % 0 %; Platelet Count 356 10^3/uL (130-400); Red Blood Cell Count 3.57 10^6/uL (4.20-5.40); Red Cell Dist. Width 15.3 % (11.5-14.5); White Blood Cell Count 8.2 10^3/uL (4.8-10.8)
[2023-11-04 15:49] LABS: Blood Urea Nitrogen 19 mg/dl (7-17); Calcium 8.5 mg/dl (8.4-10.2); Carbon Dioxide 25 mmol/L (22-30); Chloride 105 mmol/L (98-107); Glucose 82 mg/dl (70-99); Potassium 4.4 mmol/L (3.5-5.1); Sodium 137 mmol/L (135-145); eGFR 27.61
== END ==
LOC: OLABP 14:26
PROVIDERS: ATTENDING PHYSICIAN Family Medicine
DX: Z41.9 Encounter for procedure for purposes other than remedying health state, unspecified (principal); N17.9 Acute kidney failure, unspecified; I48.0 Paroxysmal atrial fibrillation; M62.81 Muscle weakness (generalized); N18.30 Chronic kidney disease, stage 3 unspecified; E87.6 Hypokalemia; I13.10 Hypertensive heart and chronic kidney disease without heart failure, with stage 1 through stage 4 chronic kidney disease, or unspecified chronic kidney disease; Z85.50 Personal history of malignant neoplasm of unspecified urinary tract organ; Z93.6 Other artificial openings of urinary tract status
CPT/HCPCS: 36415; 80048; 85025

== ENCOUNTER → 2023-11-06 10:17 | Outpatient (REF) | payer OTHER, MEDICARE, SELFPAY ==
[2023-11-06 11:13] LABS: Blood Urea Nitrogen 16 mg/dl (7-17); Calcium 8.3 mg/dl (8.4-10.2); Carbon Dioxide 21 mmol/L (22-30); Chloride 108 mmol/L (98-107); Glucose 87 mg/dl (70-99); Potassium 4.1 mmol/L (3.5-5.1); Sodium 138 mmol/L (135-145); eGFR 27.61
== END ==
LOC: OLABP 10:17
PROVIDERS: ATTENDING PHYSICIAN Family Medicine
DX: A41.9 Sepsis, unspecified organism (principal); N17.9 Acute kidney failure, unspecified; I48.0 Paroxysmal atrial fibrillation; M62.81 Muscle weakness (generalized); N18.30 Chronic kidney disease, stage 3 unspecified; E87.6 Hypokalemia; I13.10 Hypertensive heart and chronic kidney disease without heart failure, with stage 1 through stage 4 chronic kidney disease, or unspecified chronic kidney disease
CPT/HCPCS: 36415; 80048

== ENCOUNTER → 2023-12-15 11:45 | Outpatient (REF) | payer MEDICARE, OTHER, SELFPAY ==
[2023-12-15 13:30] LABS: Blood Urea Nitrogen 28 mg/dl (7-17); Calcium 10.3 mg/dl (8.4-10.2); Carbon Dioxide 19 mmol/L (22-30); Chloride 110 mmol/L (98-107); Glucose 105 mg/dl (70-99); Potassium 4.7 mmol/L (3.5-5.1); Sodium 140 mmol/L (135-145); eGFR 24.33
== END ==
LOC: OLABWIL 11:45
PROVIDERS: ATTENDING PHYSICIAN Internal Medicine
DX: N18.30 Chronic kidney disease, stage 3 unspecified (principal)
CPT/HCPCS: 80048

== ENCOUNTER → 2024-04-07 11:03 | Outpatient (REF) | payer MEDICARE, OTHER, SELFPAY ==
[2024-04-07 12:10] LABS: % Eosinophils 3.9 % (0-6); % Immature Granulocytes 0.3 % (0-0.5); % Lymphocytes 45.7 % (20.5-51.1); % Monocytes 9.5 % (1.7-9.3); % Neutrophils 39.6 % (42.2-75.2); Absolute Basophils 0.1 10^3/uL (0-0.2); Absolute Eosinophils 0.3 10^3/uL (0-0.7); Absolute Lymphocytes 3.2 10^3/uL (1.2-3.4); Absolute Monocytes 0.7 10^3/uL (0.1-0.6); Absolute Neutrophils 2.7 10^3/uL (1.4-6.5); Hematocrit 37.9 % (37.0-47.0); Mean Corp Hgb Conc. 34.3 g/dL (33.0-37.0); Mean Corpuscular Hgb 32.7 pg (27.0-31.0); Mean Corpuscular Volume 95.2 fL (81.0-99.0); Mean Platelet Volume 12.2 fL (7.4-10.4); Nucleated Red Blood Cells % 0 %; Platelet Count 223 10^3/uL (130-400); Red Blood Cell Count 3.98 10^6/uL (4.20-5.40); Red Cell Dist. Width 15.9 % (11.5-14.5); White Blood Cell Count 6.9 10^3/uL (4.8-10.8)
[2024-04-07 12:20] LABS: ALT (SGPT) 11 U/L (0-35); AST (SGOT) 24 U/L (14-36); Albumin 4.1 g/dl (3.5-5.0); Alkaline Phosphatase 45 U/L (38-126); Blood Urea Nitrogen 31 mg/dl (7-17); Calcium 10.1 mg/dl (8.4-10.2); Carbon Dioxide 17 mmol/L (22-30); Chloride 109 mmol/L (98-107); Glucose 95 mg/dl (70-99); Potassium 4.5 mmol/L (3.5-5.1); Sodium 139 mmol/L (135-145); Total Bilirubin 0.4 mg/dl (0.2-1.3); Total Protein 7.1 g/dl (6.3-8.2); eGFR 19.55
[2024-04-07 12:22] LABS: C-Reactive Protein < 5.00 mg/L (0.0-10.00)
[2024-04-07 12:42] LABS: Erythrocyte Sed Rate 23 mm/hour (0-20)
== END ==
LOC: OLABWIL 11:03
PROVIDERS: ATTENDING PHYSICIAN Internal Medicine Rheumatology
DX: M05.9 Rheumatoid arthritis with rheumatoid factor, unspecified (principal); M81.0 Age-related osteoporosis without current pathological fracture; N28.9 Disorder of kidney and ureter, unspecified
CPT/HCPCS: 36415; 80053; 85025; 85652; 86140

== ENCOUNTER → 2024-05-10 09:09 | Outpatient (REF) | payer MEDICARE, OTHER, SELFPAY ==
[2024-05-10 10:28] LABS: % Basophils 1.5 % (0-2); % Eosinophils 3.4 % (0-6); % Immature Granulocytes 0.1 % (0-0.5); % Lymphocytes 40.3 % (20.5-51.1); % Monocytes 12.2 % (1.7-9.3); % Neutrophils 42.5 % (42.2-75.2); Absolute Basophils 0.1 10^3/uL (0-0.2); Absolute Eosinophils 0.3 10^3/uL (0-0.7); Absolute Lymphocytes 2.9 10^3/uL (1.2-3.4); Absolute Monocytes 0.9 10^3/uL (0.1-0.6); Absolute Neutrophils 3.1 10^3/uL (1.4-6.5); Hematocrit 40.1 % (37.0-47.0); Hemoglobin 13.4 g/dL (12.0-16.0); Mean Corp Hgb Conc. 33.4 g/dL (33.0-37.0); Mean Corpuscular Hgb 31.8 pg (27.0-31.0); Mean Corpuscular Volume 95.2 fL (81.0-99.0); Nucleated Red Blood Cells % 0 %; Platelet Count 218 10^3/uL (130-400); Red Blood Cell Count 4.21 10^6/uL (4.20-5.40); Red Cell Dist. Width 14.9 % (11.5-14.5); White Blood Cell Count 7.3 10^3/uL (4.8-10.8)
[2024-05-10 10:46] LABS: ALT (SGPT) 13 U/L (0-35); AST (SGOT) 20 U/L (14-36); Albumin 4.4 g/dl (3.5-5.0); Alkaline Phosphatase 48 U/L (38-126); Blood Urea Nitrogen 36 mg/dl (7-17); Carbon Dioxide 18 mmol/L (22-30); Chloride 103 mmol/L (98-107); Glucose 108 mg/dl (70-99); Potassium 4.2 mmol/L (3.5-5.1); Sodium 137 mmol/L (135-145); Total Bilirubin 0.5 mg/dl (0.2-1.3); Total Protein 7.7 g/dl (6.3-8.2)
[2024-05-10 10:56] LABS: C-Reactive Protein < 5.00 mg/L (0.0-10.00)
[2024-05-10 11:01] LABS: Urine Albumin 1+ (Neg - Trace); Urine Bilirubin Negative (Negative); Urine Character Very Cloudy (Clear); Urine Color Yellow; Urine Glucose Negative (Negative); Urine Ketone Negative (Negative); Urine Leukocyte 2+ (Negative); Urine Nitrite Positive (Negative); Urine Occult Blood 4+ (Negative); Urine Urobilinogen Negative (Neg - 1+)
[2024-05-10 11:03] LABS: Erythrocyte Sed Rate 28 mm/hour (0-20)
[2024-05-10 11:20] LABS: Urine Bacteria Moderate (Negative); Urine Red Blood Cell 26-30 /HPF (0-2); Urine White Cell 30-40 /HPF (0-5)
[2024-05-10 11:21] LABS: Urine Squamous Cell 16-20 /LPF (Few)
[2024-05-10 11:22] LABS: Urine Triple Phosphate Crystal Seen
[2024-05-10 12:45] LABS: Protein/creatinine Ratio 2.6; Urine Protein 159 mg/dl
== END ==
LOC: OLABWIL 09:09
PROVIDERS: ATTENDING PHYSICIAN Internal Medicine Rheumatology; REFERRING PHYSICIAN Internal Medicine
DX: M05.9 Rheumatoid arthritis with rheumatoid factor, unspecified (principal); N28.9 Disorder of kidney and ureter, unspecified
CPT/HCPCS: 36415; 80053; 81003; 81015; 82570; 84156; 85025; 85652; 86140

== ENCOUNTER → 2024-06-14 11:37 | Outpatient (REF) | payer MEDICARE, OTHER, SELFPAY ==
[2024-06-14 12:51] LABS: Blood Urea Nitrogen 25 mg/dl (7-17); Calcium 10.2 mg/dl (8.4-10.2); Carbon Dioxide 18 mmol/L (22-30); Chloride 106 mmol/L (98-107); Glucose 112 mg/dl (70-99); Phosphorus 4.8 mg/dl (2.5-4.5); Potassium 4.9 mmol/L (3.5-5.1); Sodium 137 mmol/L (135-145); Total Protein 7.5 g/dl (6.3-8.2); eGFR 20.57
[2024-06-14 12:57] LABS: Protein/creatinine Ratio 1.7; Urine Protein 117 mg/dl
[2024-06-14 13:01] LABS: Intact PTH 60.1 pg/ml (13.6-85.8)
[2024-06-14 13:18] LABS: Hepatitis B Surface Antigen Negative (Negative)
[2024-06-14 13:35] LABS: Hepatitis B Surface Antibody Negative; Hepatitis C Antibody Negative (Negative)
[2024-06-16 05:33] LABS: Complement C3 131 mg/dl (88-165)
[2024-06-17 01:41] LABS: ANA, IgG Reflex to HEp-2 Detected (None Detected)
== END ==
LOC: OLABWIL 11:37
PROVIDERS: ATTENDING PHYSICIAN Internal Medicine Nephrology
DX: N17.9 Acute kidney failure, unspecified (principal); C67.9 Malignant neoplasm of bladder, unspecified; N18.4 Chronic kidney disease, stage 4 (severe); N13.39 Other hydronephrosis; N25.81 Secondary hyperparathyroidism of renal origin
CPT/HCPCS: 36415; 80048; 82040; 82570; 82784; 83516; 83521; 83970; 84100; 84155; 84156; 84165; 86038; 86160; 86334; 86335; 86706; 86803; 87340

== ENCOUNTER → 2024-06-28 12:19 | Outpatient (REF) | payer MEDICARE, OTHER, SELFPAY ==
[2024-06-28 13:05] LABS: Blood Urea Nitrogen 23 mg/dl (7-17); Calcium 9.4 mg/dl (8.4-10.2); Carbon Dioxide 17 mmol/L (22-30); Chloride 105 mmol/L (98-107); Glucose 111 mg/dl (70-99); Phosphorus 3.3 mg/dl (2.5-4.5); Potassium 4.7 mmol/L (3.5-5.1); Sodium 136 mmol/L (135-145)
[2024-06-28 14:46] LABS: Protein/creatinine Ratio 3.9; Urine Protein 272 mg/dl
[2024-06-28 16:32] LABS: Complement C3 136 mg/dl (88-165)
[2024-06-29 14:41] LABS: Intact PTH 168.7 pg/ml (13.6-85.8)
== END ==
LOC: OLABWIL 12:19
PROVIDERS: ATTENDING PHYSICIAN Internal Medicine Nephrology
DX: N25.81 Secondary hyperparathyroidism of renal origin (principal); N18.4 Chronic kidney disease, stage 4 (severe); N17.9 Acute kidney failure, unspecified; C67.9 Malignant neoplasm of bladder, unspecified; N13.39 Other hydronephrosis
CPT/HCPCS: 36415; 80048; 82040; 82570; 82784; 83521; 83970; 84100; 84155; 84156; 84165; 86160; 86334; 86335

== ENCOUNTER 2024-07-20 13:30 | Emergency (ER) | payer MEDICARE, OTHER, SELFPAY ==
[2024-07-20 13:48] VITALS: BP 102/65
[2024-07-20 16:20] VITALS: BMI 26.6
--- NOTE | 2024-07-20 16:22 | ED.GENMED ---
History of Present Illness
<Darby Veliz PA-C - Last Filed: 07/20/24 19:53>
General
Chief Complaint: Fall
Source: patient
Exam Limitations: none
Time Seen by Provider: 07/20/24 15:23
Nursing documentation reviewed up to this point in time: agreed with
History of Present Illness
History of Present Illness:
84-year-old female with past medical history of coronary artery disease, hypertension, A-fib on Eliquis presents emergency department following a fall. Patient states that she lives independently at [facility]. She reports that she
is getting in the shower today when she slipped and fell back hitting the back of her head. Did not lose consciousness. She denies any headache, she denies any neck pain. She denies any chest pain or shortness of breath. She denies abdominal
pain. She has some bleeding from the right side of her head. Tetanus status unknown. She states that she will follow-up with her primary care provider regarding this. Patient states that when this happened, she called the call driver in her
bathroom and staff came immediately to help her. EMS was called. She is able to walk without any difficulty
Past History
<Darby Veliz PA-C - Last Filed: 07/20/24 19:53>
Past History
ED Past Medical History: CAD, Cancer, HTN, Hypercholesterolemia and Other (PE)
ED Past Surgical History: Tonsilectomy and Urological
Social History
Tobacco: Non-smoker
Alcohol: None
Drug: None
Living: alone
Employment: Retired
Review of Systems
<Darby Veliz PA-C - Last Filed: 07/20/24 19:53>
Review of Systems
All Other Systems: ROS reviewed and negative except as documented in HPI and ROS
Phy Exam
<Darby Veliz PA-C - Last Filed: 07/20/24 19:53>
Physical Exam
Physical Exam:
General: Patient is well appearing and in no acute distress; non-toxic
Skin: Warm and dry, no rashes or lesions
Head: Normocephalic, atraumatic. Small abrasion noted to right scalp with no active bleeding no open laceration
Eyes: Sclera non-icteric. EOMs intact.
Neck: No midline cervical tenderness to palpation
Cardiac: Regular rate and rhythm, no murmur, no tenderness palpation of external chest wall
Pulm: Normal respiratory effort
Abdomen: No abdominal tenderness to palpation
Musculoskeletal: No midline tenderness palpation in the thoracic and lumbar spine
Neuro: CN II-XII intact, no focal neurologic deficits.
Psychiatric: Appropriate mood and affect.
Course
<Darby Veliz PA-C - Last Filed: 07/20/24 19:53>
Orders/Labs/Results
Orders:
Orders
07/20/24 13:31
CT Cervical Spine W/o Iv Contr Urgent
Comment:
Reason For Exam: unwitnessed fall
CT Head W/o Iv Contrast Urgent
Comment: on Xarelto
Reason For Exam: fall, head strike
Vital Signs
Initial and Last Documented VS:
Initial Vital Signs
Temp Pulse Resp BP Pulse Ox
98.4 F 71 18 102/65 97
07/20/24 13:48 07/20/24 13:48 07/20/24 13:48 07/20/24 13:48 07/20/24 13:48
Last Documented Vital Signs
Temp Pulse Resp BP Pulse Ox
98.4 F 73 18 103/63 94
07/20/24 13:48 07/20/24 16:52 07/20/24 16:52 07/20/24 16:52 07/20/24 16:52
<J Luis Ortiz DO - Last Filed: 07/20/24 16:51>
Orders/Labs/Results
Orders:
Orders
07/20/24 13:31
CT Cervical Spine W/o Iv Contr Urgent
Comment:
Reason For Exam: unwitnessed fall
CT Head W/o Iv Contrast Urgent
Comment: on Xarelto
Reason For Exam: fall, head strike
Vital Signs
Initial and Last Documented VS:
Initial Vital Signs
Temp Pulse Resp BP Pulse Ox
98.4 F 71 18 102/65 97
07/20/24 13:48 07/20/24 13:48 07/20/24 13:48 07/20/24 13:48 07/20/24 13:48
Last Documented Vital Signs
Temp Pulse Resp BP Pulse Ox
98.4 F 73 18 103/63 94
07/20/24 13:48 07/20/24 16:52 07/20/24 16:52 07/20/24 16:52 07/20/24 16:52
<Darby Veliz PA-C - Last Filed: 07/20/24 19:53>
MDM/Problems Addressed
Differential Diagnosis Includes:
Differentials include concussion, subdural hematoma, epidural hematoma, cervical spine fracture,
MDM/Problems Addressed:
84-year-old female presents emergency department following a slip and fall in the shower. She states that she fell back and hit the back of her head. She currently has no complaints, denies any headache, neck pain, chest pain, shortness of breath,
abdominal pain. CT of the head negative for any acute bleeding, CT cervical spine negative for any fracture. Patient will follow-up with her PCP regarding tetanus status. No evidence of repairable laceration on her scalp. Patient stable for
discharge
<Darby Veliz PA-C - Last Filed: 07/20/24 19:53>
*Pulse Oximetry
Patient hypoxic: no
*Critical Care Note
Total Time (30-74mins, 75-104mins- exclusive of procedures): Not Applicable
Data Reviewed
Review of Other/Old Records Reveals: Records (Reviewed discharge summary from 11/02/2023 patient seen for sepsis secondary to bacteremia and acute UTI)
ED Attending Note
<Darby Veliz PA-C - Last Filed: 07/20/24 19:53>
-
Portions of this chart may have been created with voice recognition software.� Occasional wrong word or��sound alike� substitutions may have occurred due to the inherent limitations of voice recognition software.
<J Luis Ortiz DO - Last Filed: 07/20/24 16:51>
ED Attending Note
Patient seen and examined by attending physician: Yes
I performed a history and physical exam of patient and discussed management with resident, I reviewed resident's note and agree with documented findings and plan of care.: Yes
ED Attending Note:
I reviewed and agree with history and plan by Darby Veliz. My exam revealed a 4-year-old female with small right posterior scalp laceration, superficial. No signs intracranial hemorrhage, normal neurologic exam. Stable for discharge. Patient
will follow-up with primary care for possible need for tetanus shot.
Discharge Plan
Departure
Patient Disposition: Home (Routine Discharge)
Date of Disposition: 07/20/24
Time of Disposition: 16:53
Patient with high blood pressure during this ER visit?: No
Condition: Good
Discharge Problem:
Fall from slipping, Head trauma
Instructions: Head Injury in Adults (DC), Preventing falls in adults
Prescriptions:
No Action
isosorbide mononitrate 20 MG tablet
30 mg PO DAILY
levothyroxine 50 MCG tablet
50 mcg PO DAILY
pantoprazole 40 MG tablet,delayed release (DR/EC)
40 mg PO DAILY
metoprolol tartrate 50 MG tablet
50 mg PO BID
folic acid 1 MG tablet
1 mg PO DAILY
pravastatin 20 MG tablet
20 mg PO DAILY
Xarelto 15 MG tablet
15 mg PO QPM
cholecalciferol (vitamin D3) 25 mcg (1,000 unit) Tablet
25 mcg PO DAILY
sodium bicarbonate 650 mg Tablet
1,300 mg PO TID Qty: 0 0RF
cephalexin 500 mg tablet
500 mg PO TID 6 Days Qty: 18 0RF
acetaminophen 325 mg Tablet
650 mg PO Q4HPRN PRN (Reason: mild pain/SAN/temp> 100.4F) Qty: 0 0RF
Referrals:
Cesar Kulkarni MD [Family Provider] -
Activity Restrictions/Additional Instructions:
Please follow up with your primary care provider regarding your tetanus status.
PLEASE RETURN TO THE EMERGENCY DEPARTMENT SHOULD YOU DEVELOP CHEST PAIN, SHORTNESS OF BREATH, LIGHTHEADEDNESS, DIZZINESS, FEVERS OR CHILLS, VISUAL LOSS, VISUAL CHANGES, BLURRY VISION, OR ANY OTHER SIGNS OR SYMPTOMS WORRISOME TO YOU.
Interventions
Interventions:
*Risk Screen - Suicide Last Done: 07/20/24 13:48
*General Assessment Last Done: 07/20/24 13:48
*Neglect/Abuse Screening Last Done: 07/20/24 13:48
ED- Fall Risk Assessment Last Done: 07/20/24 16:16
*ED COVID-19 Vaccine History Last Done: 07/20/24 16:20
*Nursing Disposition Last Done: 07/20/24 17:00
ED-Musculoskeletal Assessment Last Done: 07/20/24 16:20
ED- Neurological Assessment Last Done: 07/20/24 16:20
ED-Skin Assessment Last Done: 07/20/24 16:20
Discharge Date and Time
Discharge Date/Time: 07/20/24 17:01
Print Language: PORTUGUESE
[2024-07-20 16:52] VITALS: BP 103/63
== END 2024-07-20 17:01 | disposition home or self-care (01) ==
LOC: EMR 13:30
PROVIDERS: EMERGENCY PHYSICIAN Emergency Medicine; FAMILY PHYSICIAN Internal Medicine Nephrology
DX: S09.90XA Unspecified injury of head, initial encounter (principal); W18.2XXA Fall in (into) shower or empty bathtub, initial encounter; I25.10 Atherosclerotic heart disease of native coronary artery without angina pectoris; I10 Essential (primary) hypertension; I48.91 Unspecified atrial fibrillation; Z79.01 Long term (current) use of anticoagulants
CPT/HCPCS: 99284; 70450; 72125

== ENCOUNTER → 2024-12-08 11:53 | Outpatient (REF) | payer MEDICARE, OTHER, SELFPAY ==
[2024-12-08 14:03] LABS: Blood Urea Nitrogen 46 mg/dl (7-17); Calcium 10.6 mg/dl (8.4-10.2); Carbon Dioxide 18 mmol/L (22-30); Chloride 112 mmol/L (98-107); Glucose 102 mg/dl (70-99); Potassium 4.7 mmol/L (3.5-5.1); Sodium 137 mmol/L (135-145); eGFR 18.50
== END ==
LOC: OLABWIL 11:53
DX: N18.4 Chronic kidney disease, stage 4 (severe) (principal); C67.9 Malignant neoplasm of bladder, unspecified; N13.39 Other hydronephrosis; N25.81 Secondary hyperparathyroidism of renal origin
CPT/HCPCS: 36415; 80048

== ENCOUNTER 2025-02-05 20:20 | Emergency (ER) | payer MEDICARE, OTHER, SELFPAY ==
[2025-02-05 20:24] VITALS: BP 135/85
--- NOTE | 2025-02-05 21:50 | ED.MUSCINJ ---
HPI-Injury
General
Chief Complaint: Fall
Source: patient and family
Exam Limitations: none
Time Seen by Provider: 02/05/25 20:29
Nursing documentation reviewed up to this point in time: agreed with
History of Present Illness-Injury
Is this injury a work related problem?: No
Is pt an associate of [facility]?: No
Initial Injury comments:
Trip and fall in driveway. Hit face on pavement. No LOC. She sustained lact to forehead between eyebrows. Pain, swelling to nose, epistaxis [employer]/GUNNER. Also reports pain to right hand and wrist. Injury occurred just [employer] OBS[employer]/GUNNER
Past History
Past History
ED Past Medical History: CAD, Cancer, HTN, Hypercholesterolemia and Other (PE)
ED Past Surgical History: Tonsilectomy and Urological
Social History
Tobacco: Non-smoker
Alcohol: None
Drug: None
Living: alone
Employment: Retired
Review of Systems
Review of Systems
Allergies reviewed?: Yes
All Other Systems: ROS reviewed and negative except as documented in HPI and ROS
Constitutional: Reports no symptoms
EENT: Reports other (epistaxis [employer]/GUNNER)
Respiratory: Reports no symptoms
Cardiac: Reports no symptoms
ABD/GI: Reports no symptoms
Musculoskeletal: Reports joint pain (pain to right hand and wrist. Pain swelling to nose)
Skin: Reports other (laceration to forehead)
Neurological: Reports no symptoms
Psychiatric: Reports no symptoms
Musculoskeletal Injury Exam
Musculoskeletal Injury Exam
Right Hand:
Pain with Movement?: Moderate
Tender to palpation?: Moderate
Soft tissue swelling?: None
External deformity and angulation?: None
Joint effusion?: None
Contusion?: Moderate
Hematoma-local bleeding into tissue?: None
Strain- Sprain- Tear (Connective tissue injury)?: Mild
Crepitus with movement?: No
Joint instability?: No
Malalignment/deformity?: No
Range of motion: Full
Distal skin color and temperature: normal-warm & good color
Capillary Refill: normal
Normal distal neurovascular exam?: Yes
Right Wrist:
Pain with Movement?: Moderate
Tender to palpation?: Moderate
Soft tissue swelling?: None
External deformity and angulation?: None
Joint effusion?: None
Contusion?: Moderate
Hematoma-local bleeding into tissue?: None
Strain- Sprain- Tear (Connective tissue injury)?: Mild
Crepitus with movement?: No
Joint instability?: No
Malalignment/deformity?: No
Range of motion: Full
Distal skin color and temperature: normal-warm & good color
Capillary Refill: normal
Normal distal neurovascular exam?: Yes
Peripheral Pulses: radial (right): 3+
Skin Exam
Laceration
Forehead:
Length in cm: 0.5
Orientation: horizontal
Any active bleeding?: no active bleeding
Range of motion: full
Phy Exam
General Physical Exam
General Presentation: well appearing and mild distress
General age: appears stated age
General Skin: warm and dry
General Habitus: normal
General Mental: alert
Eye Exam
Eye Exam: PERRL and EOMI
Gastrointestinal Exam
Gastrointestinal Exam: non tender and soft
Aray Coma Scale
Eye Opening: Spontaneous
Verbal Response: Oriented
Motor Response: Obeys Commands
GCS Total Score: 15
Musculoskeletal Exam
Musculoskeletal Exam: full ROM and neuro vasc intact
Skin Exam
Skin Exam: normal color, warm/dry and no rash
Psychiatric Exam
Psychiatric Exam: normal mood/affect
Injury Course
Orders/Labs/Results
Orders:
Orders
02/05/25 20:26
CT Head W/o Iv Contrast Urgent
Comment:
Reason For Exam: fall, head strike, on xerelto
02/05/25 20:27
CT Cervical Spine W/o Iv Contr Urgent
Comment:
Reason For Exam: fall, head strike on xerelto.
CT Facial Bones W/o Iv Contras Urgent
Comment:
Reason For Exam: fall, right eye brow swelling and nasal deformity.
02/05/25 21:28
Hand, Right 3 View [CR Hand - Right Min 3 Views] Urgent
Comment:
Reason For Exam: fall
Wrist, Right 3 Views [CR Wrist - Right Min 3 Views] Urgent
Comment:
Reason For Exam: fall
Procedures
Laceration Closure
Forehead:
Status of Wound: clean
Description of Wound Edges: sharp
Preparation: cleaned with saline
Revision/Debridement: routine- no revision
Wound exploration: explored to base- no FB
Type of Closure: Dermabond-skin glue
*Radiology
Radiology exam reviewed: radiology read reviewed
*Pulse Oximetry
SaO2: 95
Oxygen Mode of Delivery: Room air
Patient hypoxic: no
*Critical Care Note
Total Time (30-74mins, 75-104mins- exclusive of procedures): Not Applicable
Update Note
Update Note:
Patient to ED after trip and fall in daughters driveway. Hit face on pavement. CT of head neg for acute findings. 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 Discussed findings with patient and family. SHe will followup with ENT this
week, SHe remains awake and alert, cooperative.
ED Attending Note
-
Portions of this chart may have been created with voice recognition software.� Occasional wrong word or��sound alike� substitutions may have occurred due to the inherent limitations of voice recognition software.
Discharge Plan
Departure
Patient Disposition: Home (Routine Discharge)
Date of Disposition: 02/05/25
Time of Disposition: 21:47
Patient with high blood pressure during this ER visit?: No
Condition: Good
Covid-19: Not Applicable
Discharge Problem:
Head injury, Fracture of nasal bone, Face lacerations
Instructions: Head Injury in Adults (DC), Contusion (DC), Preventing falls in adults, Skin Abrasions (DC), Nose Fracture ED
Prescriptions:
No Action
isosorbide mononitrate 20 MG tablet
30 mg PO DAILY
levothyroxine 50 MCG tablet
50 mcg PO DAILY
pantoprazole 40 MG tablet,delayed release (DR/EC)
40 mg PO DAILY
metoprolol tartrate 50 MG tablet
50 mg PO BID
folic acid 1 MG tablet
1 mg PO DAILY
pravastatin 20 MG tablet
20 mg PO DAILY
Xarelto 15 MG tablet
15 mg PO QPM
cholecalciferol (vitamin D3) 25 mcg (1,000 unit) Tablet
25 mcg PO DAILY
sodium bicarbonate 650 mg Tablet
1,300 mg PO TID Qty: 0 0RF
cephalexin 500 mg tablet
500 mg PO TID 6 Days Qty: 18 0RF
acetaminophen 325 mg Tablet
650 mg PO Q4HPRN PRN (Reason: mild pain/SAN/temp> 100.4F) Qty: 0 0RF
Referrals:
Brandon Khalil MD [Active, Otology] - Call in 1-3 days for appt
UNKNOWN - PT DOES,NOT KNOW [Family Provider]
Interventions
Interventions:
*Risk Screen - Suicide Last Done: 02/05/25 20:24
*General Assessment Last Done: 02/05/25 20:24
*Neglect/Abuse Screening Last Done: 02/05/25 20:24
ED-Musculoskeletal Assessment Last Done: 02/05/25 20:40
ED- Neurological Assessment Last Done: 02/05/25 20:40
ED-Skin Assessment Last Done: 02/05/25 20:40
Discharge Date and Time
Print Language: AZERI
== END 2025-02-05 22:13 | disposition home or self-care (01) ==
LOC: EMR 20:20
PROVIDERS: EMERGENCY PHYSICIAN Emergency Medicine
DX: S02.2XXA Fracture of nasal bones, initial encounter for closed fracture (principal); S01.81XA Laceration without foreign body of other part of head, initial encounter; S60.222A Contusion of left hand, initial encounter; S60.211A Contusion of right wrist, initial encounter; R04.0 Epistaxis; S09.90XA Unspecified injury of head, initial encounter; W01.0XXA Fall on same level from slipping, tripping and stumbling without subsequent striking against object, initial encounter; Y92.008 Other place in unspecified non-institutional (private) residence as the place of occurrence of the external cause; I25.10 Atherosclerotic heart disease of native coronary artery without angina pectoris; I48.91 Unspecified atrial fibrillation; M81.0 Age-related osteoporosis without current pathological fracture; E03.9 Hypothyroidism, unspecified; I10 Essential (primary) hypertension; E78.00 Pure hypercholesterolemia, unspecified; Z86.711 Personal history of pulmonary embolism; Z79.01 Long term (current) use of anticoagulants
CPT/HCPCS: 99284; 12011; 70450; 70486; 72125; 73110; 73130

== ENCOUNTER → 2025-02-07 11:03 | Outpatient (REF) | payer MEDICARE, OTHER, SELFPAY ==
[2025-02-07 12:09] LABS: Blood Urea Nitrogen 43 mg/dl (7-17); Calcium 9.8 mg/dl (8.4-10.2); Carbon Dioxide 19 mmol/L (22-30); Chloride 112 mmol/L (98-107); Glucose 101 mg/dl (70-99); Potassium 5.2 mmol/L (3.5-5.1); Sodium 138 mmol/L (135-145); eGFR 20.45
[2025-02-10 03:24] LABS: ds-DNA Ab, IgG Reflex To Titer 5 IU (0-24)
== END ==
LOC: OLABWIL 11:03
PROVIDERS: ATTENDING PHYSICIAN Internal Medicine Nephrology
DX: C67.9 Malignant neoplasm of bladder, unspecified (principal); N13.39 Other hydronephrosis; N25.81 Secondary hyperparathyroidism of renal origin; N18.4 Chronic kidney disease, stage 4 (severe)
CPT/HCPCS: 36415; 80048; 83970; 84100; 86225

== ENCOUNTER → 2025-02-09 12:06 | Outpatient (REF) | payer MEDICARE, OTHER, SELFPAY | LOC: OLABWIL 12:06 | PROVIDERS: ATTENDING PHYSICIAN Internal Medicine Nephrology | DX: N18.4 Chronic kidney disease, stage 4 (severe) (principal); C67.9 Malignant neoplasm of bladder, unspecified; N13.39 Other hydronephrosis | CPT/HCPCS: 82570; 84156 ==